=== PATIENT | male | born 1960 | race Caucasian/White ===

== ENCOUNTER → 2024-08-16 09:09 | Outpatient (REF) | payer MEDICARE, SELFPAY | LOC: HWRAD 09:09 | PROVIDERS: ATTENDING PHYSICIAN Nurse Practitioner Family | DX: R00.1 Bradycardia, unspecified (principal); R06.09 Other forms of dyspnea; M25.561 Pain in right knee; M25.562 Pain in left knee | CPT/HCPCS: 71046; 72110; 73564 ==

== ENCOUNTER 2025-10-24 18:11 | Emergency (ER) | payer MEDICARE, SELFPAY ==
[2025-10-24 18:17] VITALS: BP 148/84
--- NOTE | 2025-10-24 18:58 | ED.GENMED ---
History of Present Illness
General
Chief Complaint: Musculo-Skeletal Complaint
Source: patient
Exam Limitations: none
Time Seen by Provider: 10/24/25 18:47
History of Present Illness
History of Present Illness:
65yoM with a history of hypertension presenting for evaluation after a fall that 1 hour ago. Patient was walking outside when he slipped on ice and fell onto his right side with his right elbow bent. He fell onto grass. There was no head strike
or loss of consciousness. He was able to get up immediately after the fall. He was presenting with right lateral rib pain. He is otherwise asymptomatic and denies any abdominal pain, back pain, headache, neck pain, shortness of breath. He does
not take any blood thinners.
Phy Exam
General Physical Exam
General Presentation: well appearing and no apparent distress
General age: appears stated age
General Skin: warm and dry
General Habitus: normal
General Mental: alert
ENT Exam
ENT Exam: normocephalic
Pulmonary Exam
Pulmonary Exam: lungs clear, no respiratory distress, no rales, no crackles, no rhonchi, no wheezing and other (+Mild tenderness to R lateral chest wall. No skin changes or crepitus. Bilateral breath sounds equal. )
Gastrointestinal Exam
Gastrointestinal Exam: non tender, soft and non distended
Neurological Exam
Neurological Exam: alert
[place] Coma Scale
Eye Opening: Spontaneous
Verbal Response: Oriented
Motor Response: Obeys Commands
GCS Total Score: 15
Skin Exam
Skin Exam: normal color and warm/dry
Psychiatric Exam
Psychiatric Exam: normal mood/affect
Course
Orders/Labs/Results
Orders:
Orders
10/24/25 18:24
Ribs, Right 3 View W/PA Chest [CR Ribs-right 3 Vw W/pa Chest*] Urgent
Comment:
Reason For Exam: pain injury
12/31/25 19:20
Incentive Spirometry [Rx Incentive Spirometry] [RESP] Urgent
Frequency: q1h while awake
Vital Signs
Initial and Last Documented VS:
Initial Vital Signs
Pulse Resp BP Pulse Ox
80 18 148/84 94
10/24/25 18:17 10/24/25 18:17 10/24/25 18:17 10/24/25 18:17
Last Documented Vital Signs
Pulse Resp BP Pulse Ox
80 18 148/84 94
10/24/25 18:17 10/24/25 18:17 10/24/25 18:17 10/24/25 18:59
MDM/Problems Addressed
Differential Diagnosis Includes:
65yoM here with R rib pain after a mechanical fall 1 hour ago. Mild chest wall tenderness on exam without skin changes or crepitus. Bilateral breath sounds equal. Abdomen soft, non-distended. Differential diagnosis includes: rib contusion, rib
fracture, doubt pneumothorax
Rib series x-rays obtained which are negative for fractures per my interpretation. Supportive care discussed including Tylenol/ibuprofen, lidocaine patches, and incentive spirometer. Advised f/u with PCP and he was discharged in stable condition.
*Pulse Oximetry
SaO2: 94
Oxygen Mode of Delivery: Room air
Patient hypoxic: no
*Critical Care Note
Total Time (30-74mins, 75-104mins- exclusive of procedures): Not Applicable
ED Attending Note
-
Portions of this chart may have been created with voice recognition software.� Occasional wrong word or��sound alike� substitutions may have occurred due to the inherent limitations of voice recognition software.
Discharge Plan
Departure
Patient Disposition: Home (Routine Discharge)
Date of Disposition: 10/24/25
Time of Disposition: 19:25
Patient with high blood pressure during this ER visit?: Yes
Discharge Problem:
Traumatic injury of rib
Instructions: Rib injury in adults
Referrals:
[place] CRNP [Family Provider, Family Practice]
Activity Restrictions/Additional Instructions:
We will call you if your x-rays come back abnormal.
Take Tylenol and ibuprofen as needed for pain. Use lidocaine patches daily (12 hours on, 12 hours off).
Use incentive spirometer every hour while awake.
Please follow-up with your family doctor. Return to the ER with any new or worsening symptoms.
Interventions
Interventions:
*General Assessment Last Done: 10/24/25 19:15
*Neglect/Abuse Screening Last Done: 10/24/25 18:17
*ED COVID-19 Vaccine History Last Done: 10/24/25 18:17
*ED Influenza Vaccine History Last Done: 10/24/25 18:17
*Risk Screen - Suicide (C-SSRS) Last Done: 10/24/25 18:17
*Nursing Disposition Last Done: 10/24/25 20:34
ED-Musculoskeletal Assessment Last Done: 10/24/25 19:15
ED- Neurological Assessment Last Done: 10/24/25 19:15
ED-Skin Assessment Last Done: 10/24/25 19:15
Discharge Date and Time
Discharge Date/Time: 10/24/25 20:35
Print Language: CHINESE
== END 2025-10-24 20:35 | disposition home or self-care (01) ==
LOC: EMR 18:11
PROVIDERS: EMERGENCY PHYSICIAN Emergency Medicine; FAMILY PHYSICIAN Nurse Practitioner Family
DX: S29.9XXA Unspecified injury of thorax, initial encounter (principal); W00.0XXA Fall on same level due to ice and snow, initial encounter; Y93.01 Activity, walking, marching and hiking; I10 Essential (primary) hypertension
CPT/HCPCS: 99283; 71101